=== PATIENT | female | born 1975 | race Asian ===

== ENCOUNTER 2017-03-27 19:51 | Emergency (ER) | payer BC ==
[2017-03-28] MEDS ORDERED: Tetan/Diph/Pertus SYR(Tdap)* 0.5 ML SYR(BOOSTRIX) use SYR IM ONE (01:04)
[2017-03-28] MEDS ORDERED: Cephalexin CAP* 500 MG PO ONE (01:04)
[2017-03-28] MEDS ORDERED: Ibuprofen TAB* 600 MG PO ONE (02:35)
[2017-03-28] MEDS ORDERED: HYDROcodone/ACETAMIN 5-325 MG* 1 TAB PO ONE (02:35)
[2017-03-28 02:59] VITALS: BP 110/66
--- NOTE | 2017-03-28 07:44 | RAD ---
INDICATION: Right ring finger injury. TECHNIQUE: 3 views of the right ring finger were obtained. FINDINGS: There is soft tissue swelling and a soft tissue defect present around the distal phalanx. There is overlying gauze material limiting the study. There is a transverse possibly open fracture of the distal aspect of the distal phalanx. The fracture fragments are distracted and the distal fragment is displaced posteriorly approximately one shaft diameter. Joint spaces appear maintained. IMPRESSION: DISPLACED POSSIBLY OPEN FRACTURE OF THE DISTAL PHALANX.
--- NOTE | 2017-04-05 13:05 | ED ---
Upper Extremity Pain - HPI Summary HPI Summary: Pt here w/ crush injury to Rt 4th digit - accidentally pinched in a heavy door today - pain, swelling, bleeding. Denies numbness, tingling, weakness. She is unsure if imms are UTD - agrees to booster today as she's had this at some point in the past. - History of Current Complaint Chief Complaint: EDLacSutureRecheck Stated Complaint: RT FINGER LAC Time Seen by Provider: 03/28/17 00:27 Hx Obtained From: Patient - Allergies/Home Medications Allergies/Adverse Reactions: Allergies Allergy/AdvReac Type Severity Reaction Status Date / Time No Known Allergies Allergy Verified 03/27/17 20:03 PMH/Surg Hx/FS Hx/Imm Hx Previously Healthy: Yes Endocrine/Hematology History: Denies: Hx Anticoagulant Therapy - Immunization History Immunizations Up to Date: No Infectious Disease History: No Infectious Disease History: Denies: Hx of Known/Suspected MRSA, Traveled Outside the [place] in Last 30 Days - Family History Known Family History: Positive: Unknown - Social History Occupation: Student Lives: Dormitory/Roommates Alcohol Use: None Hx Substance Use: No Substance Use Type: Reports: None Hx Tobacco Use: No Smoking Status (MU): Never Smoked Tobacco Review of Systems Constitutional: Negative Negative: Fatigue Gastrointestinal: Negative Negative: Vomiting, Nausea Positive: no symptoms reported Musculoskeletal: Other - see HPI Skin: Other - see HpI Neurological: Negative Negative: Weakness, Paresthesia, Numbness Positive: Anxious All Other Systems Reviewed And Are Negative: Yes Physical Exam Triage Information Reviewed: Yes Vital Signs On Initial Exam: Initial Vitals Temp Pulse Resp BP Pulse Ox 98.9 F 75 14 119/80 100 03/27/17 20:01 03/27/17 20:01 03/27/17 20:01 03/27/17 20:01 03/27/17 20:01 Vital Signs Reviewed: Yes Appearance: Positive: Well-Appearing, Well-Nourished, Pain Distress - mild Skin: Positive: Warm - wound over 4th distal phalange - bleeding controlled w/ pressure Head/Face: Positive: Normal Head/Face Inspection Eyes: Positive: EOMI ENT: Positive: Hearing grossly normal Respiratory/Lung Sounds: Positive: Breath Sounds Present Cardiovascular: Positive: Pulses are Symmetrical in both Upper and Lower Extremities Musculoskeletal: Positive: Normal, Strength/ROM Intact Neurological: Positive: Normal, Sensory/Motor Intact, Alert, Oriented to Person Place, Time, CN Intact II-III Psychiatric: Positive: Normal - Elida Coma Scale Coma Scale Total: 15 Procedures - Laceration/Wound Repair 1 Location: upper extremity - Rt 4th digit, distal tip and DIP joint Description: Irregular Anesthesia: Digital, Lido Length, Depth and Shape: 2.5cm x 4mm Betadine Prep?: Yes Irrigated w/ Saline (ccs): 500 Laceration/Wound Explored: clean Closure: Single Layer Suture Type: Nylon - 5-0 Number of Sutures: 6 Layer Closure?: No Sterile Dressing Applied?: Yes - xeroform + gauze + coban - pt tolerated well Diagnostics - Vital Signs Vital Signs Temp Pulse Resp BP Pulse Ox 03/28/17 02:53 97.9 F 61 16 110/66 99 03/27/17 20:01 98.9 F 75 14 119/80 100 - Laboratory Lab Statement: Any lab studies that have been ordered have been reviewed, and results considered in the medical decision making process. Course/Dx - Course Course Of Treatment: Pt here w/ open fx of 4th Rt phalange - wound closed but there is concern for tendon injury, bone fragment contamination. Cleaned, closed and splinted. Advised pt close f/u care with hand specialist tomorrow - she requests [facility] - they are not on-call tonight so she agrees to call Dr Adams's office tomorrow to schedule f/u. Reviewed danger s/sx of when to return to ED. Pt agrees w/ plan. - Diagnoses Provider Diagnoses: Open fracture of phalanx of right ring finger Discharge - Discharge Plan Condition: Stable Disposition: HOME Prescriptions: Cephalexin CAP* [Keflex CAP*] 500 mg PO QID #20 cap HYDROcodone/ACETAMIN 5-325 MG* [Barry 5-325 TAB*] 1 tab PO Q6H PRN #20 tab MDD 4 PRN Reason: Pain Ibuprofen TAB* [Motrin TAB* 600 MG] 600 mg PO Q6H PRN #20 tab PRN Reason: Pain Patient Education Materials: Finger Fracture (ED), Finger Laceration (ED), Crush Injury (ED) Forms: *School Release Referrals: Tony Adams MD [Medical Doctor] - Additional Instructions: Keep finger dressed for 48 hours - followup with hand specialist to remove dressing for you. Call tomorrow to schedule an appointment in the next 2 days. In the meantime, rest, ice, elevate You may take medications as directed for pain Complete antibiotics - you may need more - inquire with hand specialist Hand specialist will remove your sutures for you - this may happen in about 10- 14 days Follow-up with hand specialist to also splint finger after initial dressing removal *If you develop fever, chills, streaking, swelling, purulent drainage, seek medical attentions sooner
== END 2017-03-28 02:50 | disposition home or self-care (01) ==
LOC: ED 19:51
DX: S62.604B Fracture of unspecified phalanx of right ring finger, initial encounter for open fracture (principal); W23.0XXA Caught, crushed, jammed, or pinched between moving objects, initial encounter; Y93.9 Activity, unspecified; Y92.9 Unspecified place or not applicable
CPT/HCPCS: 12001; 73140; 90471; 90715; 99282; A9270-GY